=== PATIENT | male | born 1985 | race Caucasian/White ===

== ENCOUNTER 2017-03-28 17:14 | Emergency (ER) | payer BC, OTHER ==
[2017-03-28 17:44] LABS: Hematocrit 44 % (42-52); Hemoglobin 15.1 g/dl (14.0-18.0); Mean Corpuscular HGB Conc 35 g/dl (31-36); Mean Corpuscular Hemoglobin 30 pg (27-31); Mean Corpuscular Volume 86 fL (80-94); Mean Platelet Volume 8 um3 (7.4-10.4); Red Blood Count 5.08 10^6/ul (4.0-5.4); Red Cell Distribution Width 13 % (10.5-15); White Blood Count 8.5 10^3/ul (3.5-10.8)
[2017-03-28] MEDS ORDERED: Iodixanol* (CONTRAST) 320 MG/ML 100 ML SDV IV ONE (17:52)
--- NOTE | 2017-03-28 17:53 | RAD ---
INDICATION: Right facial droop and arm droop. COMPARISON: None. TECHNIQUE: Contiguous axial sections of the brain were obtained from the skull base to the vertex without contrast. FINDINGS: The ventricles, cisterns and sulci are within normal limits. The wilson-white matter differentiation is adequately maintained and there is no sulcal effacement. No significant focal abnormality or mass effect is present. There is no evidence for intracranial hemorrhage. No significant focal osseous abnormality is present. The visualized portion of the paranasal sinuses and mastoid air cells appear clear. IMPRESSION: No CT evidence of acute territorial infarction or acute intracranial bleed. Findings were reported Dr. Sim over the telephone at 1750 hours on March 28, 2017.
[2017-03-28 18:02] LABS: Albumin 4.9 g/dL (3.2-5.2); Calcium 9.8 mg/dL (8.6-10.3); EGFR African American 143.9 (>60); EGFR Non-African American 111.9 (>60); Globulin 2.9 g/dL (2-4); HDL Cholesterol 48.5 mg/dL; Potassium 3.3 mmol/L (3.5-5.0); Total Bilirubin 0.5 mg/dL (0.2-1.0); Total Protein 7.8 g/dL (6.4-8.9)
--- NOTE | 2017-03-28 19:13 | RAD ---
CPT II: CPT II Codes: 3100F INDICATION: Right facial droop and arm drift COMPARISON: None TECHNIQUE: A CT angiogram of the head and neck was performed with 80 cc of Visipaque 320. Contiguous axial sections were obtained from the thoracic inlet through the [place]. Images were reconstructed in the sagittal, coronal planes and in a 3-D volume rendered format. The distal cervical internal carotid artery diameter is used as the denominater for stenosis measurement. CTA NECK: The common and internal carotid arteries are patent without hemodynamically significant stenosis. Right: The carotid bifurcation measures 1 cm in diameter and the right internal carotid artery just above the bifurcation measures approximately 9 mm in diameter indicating approximately 10% degree stenosis although there is no calcified or noncalcified atherosclerosis. Left: The carotid bifurcation measures 9 mm in diameter and the left internal carotid artery just above the bifurcation measures approximately 9 mm in diameter indicating approximately 0% degree stenosis and there is no calcified or noncalcified atherosclerosis. The vertebral arteries are patent without gross abnormality. CTA of the brain: The internal carotid, anterior and middle cerebral arteries appear are patent without high grade stenosis or occlusion. The vertebral, basilar and posterior cerebral arteries appear patent without high grade stenosis or occlusion. The [place] is complete with bilateral posterior communicating arteries identified. No focal luminal filling defect, aneurysm or vascular malformation is seen. IMPRESSION: Normal CT angiography of the head and neck.
--- NOTE | 2017-03-28 21:07 | RAD ---
HISTORY: Right upper extremity weakness/numbness and right facial asymmetry COMPARISONS: None TECHNIQUE: The following sequences were obtained of the head: Sagittal T1-weighted images, axial T2-weighted images, axial FLAIR images, axial susceptibility weighted images, axial T1-weighted images. Additionally, axial diffusion-weighted images were obtained with calculated apparent diffusion coefficients.. FINDINGS: HEMORRHAGE/INFARCT: There is no hemorrhage or acute infarct. MASSES/SHIFT: There is no mass or shift. EXTRA-AXIAL SPACES/MENINGES: There are no extra-axial fluid collections. SULCI AND VENTRICLES: The sulci and ventricles are normal in size and position for the patient's stated age. CEREBRUM: There are no focal parenchymal abnormalities. BRAINSTEM: There are no focal parenchymal abnormalities. CEREBELLUM: There are no focal parenchymal abnormalities. The cerebellar tonsils are normal in size and position. SELLA: The sella is normal. PINEAL: The pineal region is clear. CP ANGLE/TEMPORAL BONES: The labyrinthine structures are grossly normal. VESSELS: Normal flow-voids are noted within the visualized vertebral vasculature. DIFFUSION ABNORMALITIES: There are no diffusion abnormalities. PARANASAL SINUSES/MASTOIDS: The paranasal sinuses are clear. ORBITS: The orbits are unremarkable. BONES AND SOFT TISSUE: No bone or soft tissue abnormalities are noted. IMPRESSION: NORMAL BRAIN MRI.
[2017-03-28 21:59] VITALS: BP 125/52
--- NOTE | 2017-03-29 00:32 | CONS ---
NEUROLOGY CONSULTATION: DATE OF CONSULT: 03/28/17 LOCATION: The patient is in the emergency department. REASON FOR CONSULT: Code wilson. HISTORY OF PRESENT ILLNESS: Austin Cunningham is a 31-year-old man with a history of seasonal allergies, otherwise healthy, who presented to the emergency department with the onset of right-sided symptoms this morning. Approximately 9 or 10 a.m., he indicates that his right arm felt different. He has a difficult time describing this further, but it may have been a bit of an element of pain or just that he could feel the arm where he normally cannot really tell it is there. This fluctuated throughout the day and then around 4 p.m., he was trying to play violin and noted that he was unable to play the way he usually does and the right arm just did not seem to be doing what he wanted it to do. In addition, he smiled at himself in the mirror and felt that it was more effortful to activate the right side of his face. He also has some numbness in the right side of the face and some tingling in the leg on the right side as well. The symptoms have largely improved in the arm and leg, but he still feels some of the symptoms in the face. He drove himself to the emergency department and a code wilson was activated. He denies any similar symptoms in the past. He has had no recent illnesses. He has no known tic exposures, but mowed the lawn earlier this week and have cats which are outdoor cats. He notes that his is away in [place] for the week. He denies any new stress. He denies history of problems with anxiety or depression. He has not had any recent neck injuries or neck manipulations. He does note that his shoulders have had some pain on and off recently. He denies any language difficulties, vision problems, vertigo, dysarthria, aphasia, or balance problems. PAST MEDICAL HISTORY: Seasonal allergies. MEDICATIONS: Fexofenadine over the counter. ALLERGIES: No known drug allergies. FAMILY HISTORY: He reports history of multiple sclerosis in his paternal aunt. Paternal uncle had a stroke, but he is over 60. He is not aware of any family history of DVTs or PEs. SOCIAL HISTORY: He works as a teachers' aide and self-employed. He denies tobacco or drug use. He drinks 3 to 4 drinks per week. He is . REVIEW OF SYSTEMS: As per the HPI. Otherwise negative. PHYSICAL EXAM: Vital Signs: Temperature 98.4, heart rate 102, blood pressure 164/82 on admission which is down to 130/80 after his CAT scans, and oxygen saturation 100% on room air. On general examination, he is in no acute distress. His heart is in a regular rate and rhythm. There are no carotid bruits. Lungs are clear to auscultation bilaterally. He seems slightly anxious. On mental status testing, he is fully awake, alert, and oriented. Speech is fluent without dysarthria or aphasia. On cranial nerve testing, pupils are equal, round, and reactive from 4 to 2 mm bilaterally. His fundi are benign. Versions are full without nystagmus. Visual napier are full to confrontation with no extinction to double simultaneous stimulation. He endorses that sensation in the right V1 through V3 distributions is about 75% of that on the left to pinprick. There is also a diminished sensation to temperature on the right side in the face. His face appears symmetric with equal activation to me, but subjectively, he feels that there is a difference. Cheek puff and lip pursing are equal bilaterally. Hearing is intact to finger rub. Palate elevates symmetrically and the tongue is midline. On motor examination, there is normal bulk and tone in the upper and lower extremities. He has very mild approximately 5- weakness in the right deltoid, but otherwise, the upper and lower extremities have full strength. There is no pronator drift. Sensation to pinprick and temperature is essentially equal in the upper and lower extremities. Reflexes are 2 to 3+ in the upper and lower extremities with downgoing toes. There is no Gavino sign. There is no ataxia on [id number] or [id number] testing. Romberg is negative. His gait is normal and he is able to heel and toe walk. However, when walking, he indicates that it does not feel entirely normal to him. DIAGNOSTIC STUDIES/LAB DATA: CBC was entirely normal. Chemistry and coagulation panels are pending. Noncontrast brain CT was obtained and personally reviewed and showed no acute intracranial pathology. A CT angiogram of the head and neck was obtained and personally reviewed and was normal to my eye. Formal radiology report is pending. His EKG showed sinus rhythm. IMPRESSION: Austin Cunningham is a 31-year-old man with no significant past medical history who presents with fluctuating and somewhat transient right-sided sensory and motor symptoms involving the face, arm, and leg. He has very mild and mostly subjective abnormalities on his exam at this time. The differential would include stroke/transient ischemic attack, demyelinating disease as well as stress/anxiety reaction. There is no obvious risk factors elicited during my encounter with him for conversion disorder. His imaging and workup at this point are benign. He is not in the t-PA window. I have discussed with Dr. Sim and asked for an MRI scan of the brain, which is going to be obtained in the ED tonight. If this is unremarkable, I think it would be safe to have the patient discharged for outpatient followup with primary care and if necessary with Neurology. [id number]/[facility] #: [id number] JANAY
--- NOTE | 2017-04-10 10:35 | ED ---
Kike Desai Rebecca, scribed for Flakito Sim MD on 03/28/17 at 1730 . Neurological HPI - HPI Summary HPI Summary: Pt is a 31 y/o M who presents to ED c/o R-sided weakness and numbness. Sx began suddenly this morning at approximately 1000, beginning with the RUE, reporting the sensation it "it felt inflamed" and that "something felt off." Reports his arm "feels like it needs stretching out." Symptoms on the LLE and right side of the face began after, approxiamtely 45 minutes [employer]. States he is "having trouble smiling straight." Sx aggravated and alleviated by nothing. Yesterday pt reports he has no complaints. Denies any recent stress. Previously has experienced "tingling occasionally." SHx weekly EtOH, never smoked. FHx MS (aunt ), stroke (paternal uncle). No PMHx kidney problems. - History of Current Complaint Chief Complaint: EDNeurologicalDeficit Stated Complaint: WEAKNESS RT SIDE Time Seen by Provider: 03/28/17 17:20 Hx Obtained From: Patient Onset/Duration: Sudden Onset, Still Present Timing: Constant Pain Intensity: 0 Pain Scale Used: 0-10 Numeric Character: Numbness/Tingling - Weakness Aggravating: Nothing Alleviating: Nothing Associated Signs and Symptoms: Positive: Weakness - R-sided (RUE, RLE, R-side of the face), Numbness - R-sided (RUE, RLE, R-side of the face) - Allergy/Home Medications Allergies/Adverse Reactions: Allergies Allergy/AdvReac Type Severity Reaction Status Date / Time Cefaclor [From [facility]] Allergy Hives Verified 03/28/17 18:34 Sulfa Antibiotics Allergy Rash Verified 03/28/17 18:34 PMH/Surg Hx/FS Hx/Imm Hx Endocrine/Hematology History: Denies: Hx Diabetes Cardiovascular History: Denies: Hx Hypertension Respiratory History: Reports: Hx Seasonal Allergies - smog Infectious Disease History: Denies: Traveled Outside the [place] in Last 30 Days - Family History Known Family History: Positive: Other - MS (aunt), stroke (uncle) - Social History Alcohol Use: Weekly Hx Substance Use: No Substance Use Type: Reports: None Hx Tobacco Use: No Smoking Status (MU): Never Smoked Tobacco Review of Systems Negative: Fever, Chills Negative: Erythema Negative: Sore Throat Negative: Chest Pain Negative: Shortness Of Breath, Cough Negative: Abdominal Pain, Vomiting Negative: dysuria, hematuria Negative: Myalgia, Edema Negative: Rash Neurological: Other - Negative dizziness Positive: Weakness - RUE, RLE, R-side of the face, Numbness - RUE, RLE, R-side of the face All Other Systems Reviewed And Are Negative: Yes Physical Exam - Summary Physical Exam Summary: Constitutional: Well-developed, Well-nourished, Alert. (-) Distressed Skin: Warm, Dry HENT: Eyes: Conjunctiva normal Neck: Musculoskeletal ROM normal neck. (-) JVD, (-) Stridor, (-) Tracheal deviation Cardio: Rhythm regular, rate normal, Heart sounds normal; Intact distal pulses; The pedal pulses are 2+ and symmetric. Radial pulses are 2+ and symmetric. (-) Murmur Pulmonary/Chest wall: Effort normal. (-) Respiratory distress, (-) Wheezes, (-) Rales Abd: Soft. (-) Tenderness, ~(-) Distension, (-) Guarding, (-) Rebound Musculoskeletal: (-) Edema Lymph: (-) Cervical adenopathy Neuro: Alert, Oriented x3, Cranial nerves II-XII are grossly intact. (-) Dysmetria, (-) Nystagmus, (-) Ataxia by finger to nose testing, Diminished sensation to the R hand and R foot, R pronator drift, subtle right smile asymmetry Psych: Mood and affect Normal ~ Triage Information Reviewed: Yes Vital Signs On Initial Exam: Initial Vitals Temp Pulse Resp BP Pulse Ox 98.4 F 102 20 164/82 100 03/28/17 17:16 03/28/17 17:16 03/28/17 17:16 03/28/17 17:16 03/28/17 17:16 Vital Signs Reviewed: Yes Diagnostics - Vital Signs Vital Signs Temp Pulse Resp BP Pulse Ox 03/28/17 17:16 98.4 F 102 20 164/82 100 - Laboratory Result Diagrams: 03/28/17 17:32 03/28/17 17:32 Lab Statement: Any lab studies that have been ordered have been reviewed, and results considered in the medical decision making process. - Radiology Brain MRI Xray Interpretation: No Acute Changes - Normal brain MRI. Radiology Interpretation Completed By: Radiologist - CT Brain CT CT Interpretation: No Acute Changes - No CT evidence of acute territorial infarction or acute intracranial bleed. Findings were reported Dr. Sim over the telephone at 1750 hours on March 28, 2017. CT Interpretation Completed By: Radiologist CTA Head/Neck CT Interpretation: No Acute Changes - Normal CT angiography of the head and neck. 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 Non-Paretic Hand: Both Correctly Best Gaze (Only Horizontal Eye Movement): Normal Visual Field Testing: No Visual Loss Facial Paresis-Pt to Smile & Close Eyes or Grimace Symmetry: Minor Paralysis Motor Function - Right Arm: Drifts LT 10 seconds Motor Function - Left Arm: No Drift-Holds 10 Seconds Motor Function - Right Leg: No Drift-Holds 10 Seconds Motor Function - Left Leg: No Drift-Holds 10 Seconds Limb Ataxia-Must be out of Proportion to Weakness Present: Absent Sensory (Use Pinprick to Test Arms/Legs/Trunk/Face): Pinprick Less on Affected Best Language (Describe Picture, Name Items): No Aphasia Dysarthria (Read Several Words): Normal Extinction and Inattention: No Abnormality Total Score: 3 Re-Evaluation - Re-Evaluation First Eval Re-Evaluation Time: 18:28 Change: Unchanged Comment: Unchanged exam, is anxious appearing. Discussed CT results with the pt. Dr. Camp requested an MRI without contrast. He is scheduled for one at 1930 today. Second Eval Re-Evaluation Time: 21:18 Change: Unchanged Comment: Pt feels as though he is not enxious, though he appears anxious, presenting with pressured speech. Upon reevaluation, pronator arm drift is completely resolved. Will consult Dr. Camp. Course/Dx - Course Assessment/Plan: Pt is a 31 y/o M who presents to ED c/o R-sided weakness and numbness that began with RUE numbness/weakness at 1000 with the RLE and R-sided facial sx beginning 45 minutes [employer]. Yesterday, pt was at baseline. Denies any recent stress. Previously has experienced "tingling occasionally." Brain CT, Head/Neck CTA, Brain MRI and EKG reveal no acute findings. Pt will be D/C to home with a Dx of conversion disorder with a follow up with Dr. Camp in 3-5 days. - Diagnoses Provider Diagnoses: Conversion disorder During the Visit The Following Alert/Code Occurred: Code Gunderson - 1727 - Physician Notifications Discussed Care of Patient With: Dr. Camp, neurologist, who will evaluate pt. Dr. Camp evaluated the pt and at [address] Camp at 2119 who advised to continue with the original plan to D/C the pt, as CVA and MS were r/ o. Time Discussed With Above Provider: 17:36 Discharge - Discharge Plan Condition: Stable Disposition: HOME Referrals: Jael Camp MD [Medical Doctor] - 5 Days (Follow up in 3-5 days. ) The documentation as recorded by the Kike chaparro Rebecca accurately reflects the service I personally performed and the decisions made by , Flakito Sim MD.
== END 2017-03-28 22:01 | disposition home or self-care (01) ==
LOC: ED 17:14
DX: F44.9 Dissociative and conversion disorder, unspecified (principal); R53.1 Weakness; R20.0 Anesthesia of skin; Z88.2 Allergy status to sulfonamides; Z88.1 Allergy status to other antibiotic agents
CPT/HCPCS: 36415; 70450; 70496; 70498; 70551; 80053; 80061; 83605; 84484; 85025; 85610; 85730; 86850; 86900; 86901; 93005; 99285; Q9967